=== PATIENT | female | born 1965 | race Caucasian/White ===

== ENCOUNTER 2017-07-25 14:04 | Observation (INO) | payer OTHER ==
[~2017-07-25] VITALS: Ht 157.5 cm; Wt 72.1 kg
[~2017-07-25 14:04] MED LIST: ALPRAZOLAM0.25 M2 PO; AMBIEN CR12.5 MG; AMBIEN CR12.5 MG PO; AMBIEN5 MG PO; AUGMENTIN875 MG PO; Ascorbic Acid,Ester- PO; CLARINEX-D 241 EACH PO; CLARINEX5 MG PO; CRESTOR20 MG PO; CRESTOR40 MG PO; Coumadin,Jantoven PO; DEXILANT60 MG PO; DOXYCYCLINE HYC50 MG; DOXYCYCLINE HYC50 MG PO; MARTEN-TAB 3251 EACH PO; NEXIUM40 MG PO; PRAVASTATIN SOD40 MG PO; PROTONIX40 MG; PROTONIX40 MG PO; SERTRALINE HCL100 MG; TIZANIDINE HCL4 MG PO; TRAMADOL HCL50 MG PO; Vibramycin PO; ZOLOFT100 MG PO; Zoloft PO
[2017-07-25 16:24] LABS: ALBUMIN 4.5 g/dL (3.2-4.8); CHLORIDE 101 mEq/L (99-109); POTASSIUM 5.2 mEq/L (3.7-5.4); SODIUM 138 mEq/L (136-147)
[2017-07-25 16:25] LABS: MAGNESIUM 2.8 mg/dL (1.3-2.7)
[2017-07-25 16:26] LABS: GLUCOSE 84 mg/dL (70-99)
[2017-07-25 16:27] LABS: TOTAL PROTEIN 9.2 g/dL (6.4-8.3)
[2017-07-25 16:28] LABS: TOTAL BILIRUBIN 0.3 mg/dL (0.0-1.0)
[2017-07-25 16:29] LABS: SERUM ETHYL ALCOHOL < 10 mg/dL
[2017-07-25 16:30] LABS: ALKALINE PHOSPHATASE 120 IU/L (3-129); CREATININE 0.9 mg/dL (0.6-1.3); GFR ESTIMATE (CALCULATED) > 59 mL/min/
[2017-07-25 16:31] LABS: UREA NITROGEN (BUN) 16 mg/dL (9-23)
[2017-07-25 16:32] LABS: AST (GOT) 70 IU/L (2-34)
[2017-07-25 16:33] LABS: ALT (GPT) 38 IU/L (3-49)
[2017-07-25 16:34] LABS: HEMATOCRIT 39.5 % (36.0-46.0); HEMOGLOBIN 13.2 G/DL (11.9-15.5); MCHC 33.4 G/DL (30.0-36.0); MCV 92.7 FL (83-99); PLATELET COUNT 331 K/uL (156-360); RBC DIS.WIDTH-CV 14.4 % (11.8-14.6); RED BLOOD COUNT 4.26 M/uL (3.80-5.20); WHITE BLOOD COUNT 13.3 K/uL (4.1-10.2)
[2017-07-25] MEDS ORDERED: FIORICET 50-301 EAC1 PO (20:23)
[2017-07-25] MEDS ORDERED: NEURONTIN100 MG PO (20:23)
[2017-07-25] MEDS ORDERED: ELAVIL25 MG PO (20:24)
[2017-07-25] MEDS ORDERED: MAGNESIUM400 M1 PO (20:25)
[2017-07-25] MEDS ORDERED: CYMBALTA30 MG PO (20:25)
[2017-07-25] MEDS ORDERED: BACLOFEN10 MG PO (20:26)
[2017-07-25] MEDS ORDERED: PRILOSEC20 MG PO (20:26)
[2017-07-25] MEDS ORDERED: KLONOPIN1 MG PO (20:26)
[2017-07-25] MEDS ORDERED: TECFIDERA120 MG PO (20:27)
[2017-07-25 21:27] LABS: TROP-I INTERPRETATION NEGATIVE; TROPONIN-I 0.03 ng/mL (0.0-0.30)
[2017-07-25 22:12] LABS: FOLIC ACID (FOLATE) > 22.0 NG/ML (5.0-22.0)
[2017-07-25 22:20] VITALS: BP 133/81
[2017-07-26 01:05] LABS: APPEARANCE SL.HAZY ((CLEAR)); BILIRUBIN NEGATIVE; BLOOD NEGATIVE; COLOR YELLOW ((YELLOW)); GLUCOSE (STRIP) NEGATIVE; KETONES 80; LEUKOCYTES NEGATIVE; NITRITE NEGATIVE; PROTEIN (STRIP) 100; SPECIFIC GRAVITY 1.026 (1.000-1.030); UROBILINOGEN 0.2 MG/DL (0.2-1.0)
[2017-07-26 01:18] LABS: BACTERIA NONE SEEN /HPF; EPITHELIAL CELLS NONE SEEN /HPF; MUCUS TRACE /LPF; RED BLOOD CELLS 0-5 /HPF (0-5); WHITE BLOOD CELLS 0-5 /HPF (0-5)
[2017-07-26 01:36] LABS: AMPHETAMINE NEGATIVE (500 ng/mL); BARBITURATES PRESUMPTIVE POSITIVE (200 ng/mL); BENZODIAZEPINES PRESUMPTIVE POSITIVE (150 ng/mL); BUPRENORPHINE NEGATIVE (10 ng/mL); COCAINE NEGATIVE (150 ng/mL); METHADONE NEGATIVE (200 ng/mL); METHAMPHETAMINE NEGATIVE (500 ng/mL); OPIATES (MORPHINE) NEGATIVE (100 ng/mL); OXYCODONE NEGATIVE (100 ng/mL); PHENCYCLIDINE NEGATIVE (25 ng/mL); PROPOXYPHENE NEGATIVE (300 ng/mL); THC CANNABINOIDS NEGATIVE (50 ng/mL); TRICYCLIC ANTIDEPRESSANTS PRESUMPTIVE POSITIVE (300 ng/mL)
[2017-07-26 02:34] LABS: BENZODIAZEPINES, URINE SCREEN Negative (200 ng/mL)
[2017-07-26 04:28] VITALS: BP 137/75
[2017-07-26 06:52] LABS: HEMATOCRIT 34.3 % (36.0-46.0); MCH 30.7 PG (29.0-34.0); MCHC 31.8 G/DL (30.0-36.0); MCV 96.6 FL (83-99); PLATELET COUNT 251 K/uL (156-360); RBC DIS.WIDTH-CV 14.7 % (11.8-14.6); RBC DIS.WIDTH-SD 52.4 % (39-53); RED BLOOD COUNT 3.55 M/uL (3.80-5.20); WHITE BLOOD COUNT 7.4 K/uL (4.1-10.2)
[2017-07-26 06:56] LABS: HEMOGLOBIN 10.9 G/DL (11.9-15.5)
[2017-07-26 07:13] LABS: CHLORIDE 106 MEQ/L (99-109); CREATININE 0.5 MG/DL (0.6-1.3); GFR ESTIMATE (CALCULATED) > 59 mL/min/; GLUCOSE 91 mg/dL (70-99); POTASSIUM 3.7 MEQ/L (3.7-5.4); SODIUM 142 MEQ/L (136-147); UREA NITROGEN (BUN) 10 mg/dL (9-23)
[2017-07-26 07:37] VITALS: BP 139/87
[2017-07-26 15:29] VITALS: BP 140/84
[2017-07-26 18:51] VITALS: BP 133/79
[2017-07-26 22:59] VITALS: BP 131/77
[2017-07-27 04:15] VITALS: BP 112/62
[2017-07-27 07:01] VITALS: BP 116/71
[2017-07-27 12:08] VITALS: BP 108/61
[2017-07-27 15:20] VITALS: BP 119/77
[2017-07-27] MEDS ORDERED: RISPERIDONE1 MG PO (15:58)
[2017-07-27] MEDS ORDERED: DULOXETINE HCL60 MG PO (15:58)
[2017-07-27] MEDS ORDERED: SERTRALINE HCL50 MG PO (15:58)
== END 2017-07-27 17:32 | disposition home or self-care (01) ==
LOC: EME 14:04 → 5EAST 19:45 → EDOF 19:45 → 5EAST 19:45 → EDOF 19:45 → ENRESERV 19:52 → 5EAST 22:10 → ENPENDDIS 07-27 → 5EAST 07-27 17:32
PROVIDERS: Emergency Medicine; Hospitalist
DX: F22 Delusional disorders (principal); G35 Multiple sclerosis; E78.5 Hyperlipidemia, unspecified; I69.351 Hemiplegia and hemiparesis following cerebral infarction affecting right dominant side; E86.0 Dehydration; R00.0 Tachycardia, unspecified; R29.6 Repeated falls; F17.290 Nicotine dependence, other tobacco product, uncomplicated; Z81.8 Family history of other mental and behavioral disorders; Z66 Do not resuscitate; Z88.5 Allergy status to narcotic agent; Z88.6 Allergy status to analgesic agent; Z79.899 Other long term (current) drug therapy
CPT/HCPCS: 70450; 71045; 80048; 80053; 81003; 82140; 82306; 82607; 82746; 83735; 84443; 84484; 84999; 85027; 87040; 87086; 93005; 93306; 99281; 99284; G0378; G0480; G8978 GP CH; G8979 GP CH; G8980 GP CH; G8987 GO CH; G8988 GO CH; G8989 GO CH; J1644; J2060; J7030

== ENCOUNTER 2017-08-01 10:59 | Inpatient (IN) | payer OTHER ==
[~2017-08-01] VITALS: Ht 157.5 cm; Wt 74.8 kg
[~2017-08-01 10:59] MED LIST changes: +BACLOFEN10 MG PO; +CYMBALTA30 MG PO; +DULOXETINE HCL60 MG PO; +ELAVIL25 MG PO; +FIORICET 50-301 EAC1 PO; +KLONOPIN1 MG PO; +MAGNESIUM400 M1 PO; +NEURONTIN100 MG PO; +PRILOSEC20 MG PO; +RISPERIDONE1 MG PO; +SERTRALINE HCL50 MG PO; +TECFIDERA240 MG PO
[2017-08-01 11:41] LABS: HEMATOCRIT 34.9 % (36.0-46.0); HEMOGLOBIN 11.3 G/DL (11.9-15.5); MCH 30.7 PG (29.0-34.0); MCHC 32.4 G/DL (30.0-36.0); MCV 94.8 FL (83-99); RBC DIS.WIDTH-CV 13.8 % (11.8-14.6); RBC DIS.WIDTH-SD 48.6 % (39-53); RED BLOOD COUNT 3.68 M/uL (3.80-5.20); WHITE BLOOD COUNT 10.7 K/uL (4.1-10.2)
[2017-08-01 11:49] LABS: CHLORIDE 104 mEq/L (99-109); POTASSIUM 3.5 mEq/L (3.7-5.4); SODIUM 143 mEq/L (136-147)
[2017-08-01 11:51] LABS: GLUCOSE 118 mg/dL (70-99); PLATELET COUNT 374 K/uL (156-360)
[2017-08-01 11:54] LABS: CREATININE 0.8 mg/dL (0.6-1.3); GFR ESTIMATE (CALCULATED) > 59 mL/min/
[2017-08-01 11:55] LABS: UREA NITROGEN (BUN) 9 mg/dL (9-23)
[2017-08-01 12:02] LABS: TROP-I INTERPRETATION NEGATIVE; TROPONIN-I < 0.01 ng/mL (0.0-0.30)
[2017-08-01 13:23] LABS: ALBUMIN 4.1 g/dL (3.2-4.8)
[2017-08-01 13:29] LABS: ALKALINE PHOSPHATASE 103 IU/L (3-129); TOTAL BILIRUBIN 0.2 mg/dL (0.0-1.0); TOTAL PROTEIN 7.8 g/dL (6.4-8.3)
[2017-08-01 13:31] LABS: DIRECT BILIRUBIN 0.1 mg/dL (0.0-0.3)
[2017-08-01 13:32] LABS: ALT (GPT) 15 IU/L (3-49); AST (GOT) 13 IU/L (2-34); LIPASE 37 U/L (1.0-51.0)
[2017-08-01] MEDS ORDERED: CYANOCOBAL1000 MCG/2 IM (18:43)
[2017-08-01 21:32] VITALS: BP 130/88
[2017-08-02 04:48] VITALS: BP 111/67
[2017-08-02 06:50] LABS: CHLORIDE 103 MEQ/L (99-109); CREATININE 0.6 MG/DL (0.6-1.3); GFR ESTIMATE (CALCULATED) > 59 mL/min/; GLUCOSE 103 mg/dL (70-99); POTASSIUM 4.1 MEQ/L (3.7-5.4); SODIUM 140 MEQ/L (136-147); UREA NITROGEN (BUN) 8 mg/dL (9-23)
[2017-08-02 06:56] LABS: BASOPHIL (%) 0.4 % (0-1); EOSINOPHIL (%) 1.2 % (0-5); EOSINOPHIL COUNT 0.1 K/uL (0-0.3); HEMATOCRIT 29.3 % (36.0-46.0); IMMATURE GRANULOCYTE (%) 0.3 % (0.0-0.7); LYMPHOCYTE (%) 24.4 % (15-42); LYMPHOCYTE COUNT 1.9 K/uL (1.0-2.8); MCH 30.1 PG (29.0-34.0); MCHC 31.1 G/DL (30.0-36.0); MONOCYTE (%) 8.1 % (3-12); MONOCYTE COUNT 0.6 K/uL (0-0.8); NEUTROPHIL (%) 65.6 % (45-76); PLATELET COUNT 294 K/uL (156-360); RBC DIS.WIDTH-CV 14.1 % (11.8-14.6); RED BLOOD COUNT 3.02 M/uL (3.80-5.20); WHITE BLOOD COUNT 7.7 K/uL (4.1-10.2)
[2017-08-02 06:57] LABS: HEMOGLOBIN 9.1 G/DL (11.9-15.5)
[2017-08-02 08:00] VITALS: BP 112/64
[2017-08-02 15:54] VITALS: BP 122/74
[2017-08-02 19:52] VITALS: BP 100/67
[2017-08-03] VITALS (7 sets, daily range): BP systolic 96–121; BP diastolic 52–83
[2017-08-03 06:36] LABS: BASOPHIL (%) 0.3 % (0-1); EOSINOPHIL (%) 1.2 % (0-5); EOSINOPHIL COUNT 0.1 K/uL (0-0.3); HEMATOCRIT 29.6 % (36.0-46.0); HEMOGLOBIN 9.2 G/DL (11.9-15.5); IMMATURE GRANULOCYTE (%) 0.5 % (0.0-0.7); LYMPHOCYTE (%) 32.1 % (15-42); LYMPHOCYTE COUNT 1.9 K/uL (1.0-2.8); MCHC 31.1 G/DL (30.0-36.0); MCV 96.4 FL (83-99); MONOCYTE COUNT 0.4 K/uL (0-0.8); NEUTROPHIL (%) 59.9 % (45-76); NEUTROPHIL COUNT 3.5 K/uL (1.8-6.4); PLATELET COUNT 350 K/uL (156-360); RBC DIS.WIDTH-CV 13.8 % (11.8-14.6); RBC DIS.WIDTH-SD 49.2 % (39-53); RED BLOOD COUNT 3.07 M/uL (3.80-5.20); WHITE BLOOD COUNT 5.9 K/uL (4.1-10.2)
[2017-08-03 07:00] LABS: CHLORIDE 105 MEQ/L (99-109); CREATININE 0.6 MG/DL (0.6-1.3); GFR ESTIMATE (CALCULATED) > 59 mL/min/; GLUCOSE 94 mg/dL (70-99); POTASSIUM 4.1 MEQ/L (3.7-5.4); SODIUM 142 MEQ/L (136-147); UREA NITROGEN (BUN) 6 mg/dL (9-23)
[2017-08-04 04:54] VITALS: BP 101/62
[2017-08-04 07:44] VITALS: BP 125/80
[2017-08-04 11:43] VITALS: BP 95/51
[2017-08-04 16:30] VITALS: BP 120/75
[2017-08-04 19:41] VITALS: BP 107/67
[2017-08-04 23:30] VITALS: BP 136/87
[2017-08-05 03:47] VITALS: BP 132/77
[2017-08-05 07:51] VITALS: BP 115/78
[2017-08-05 11:15] VITALS: BP 131/79
[2017-08-05] MEDS ORDERED: AUGMENTIN875 MG PO ×2 (11:23→11:44)
== END 2017-08-05 12:50 | disposition home or self-care (01) | DRG 194 ==
LOC: EME 10:59 → 5SOUTH 19:10 → EDOF 19:10 → ENRESERV 19:27 → 5SOUTH 21:24
PROVIDERS: Hospitalist; Student in an Organized Health Care Education/Training Program
DX: J18.9 Pneumonia, unspecified organism (principal); I69.351 Hemiplegia and hemiparesis following cerebral infarction affecting right dominant side; G35 Multiple sclerosis; J90 Pleural effusion, not elsewhere classified; E78.5 Hyperlipidemia, unspecified; E87.6 Hypokalemia; E83.52 Hypercalcemia; D64.9 Anemia, unspecified; Z90.710 Acquired absence of both cervix and uterus; Z96.651 Presence of right artificial knee joint; Z87.891 Personal history of nicotine dependence; I25.10 Atherosclerotic heart disease of native coronary artery without angina pectoris; F22 Delusional disorders; K21.9 Gastro-esophageal reflux disease without esophagitis; F32.9 Major depressive disorder, single episode, unspecified
CPT/HCPCS: 71045; 71046; 71275; 76705; 80048; 80076; 83605; 83690; 84484; 85025; 85027; 85379; 87040; 87070; 87205; 87449; 87502; 93005; 94640; 94640 76; 94760; 94799; 97530 GO; 99202; 99281; 99285; J0295; J0456; J0696; J1650; J2405; J3010; J7030; J7050

== ENCOUNTER 2017-09-20 17:41 | Inpatient (IN) | payer OTHER ==
[~2017-09-20] VITALS: Ht 157.5 cm; Wt 75.4 kg
[~2017-09-20 17:41] MED LIST changes: +CYANOCOBAL1000 MCG/2 IM
[2017-09-20 18:38] LABS: BASOPHIL (%) 0.3 % (0-1); EOSINOPHIL (%) 0 % (0-5); HEMATOCRIT 37.6 % (36.0-46.0); HEMOGLOBIN 12.1 G/DL (11.9-15.5); IMMATURE GRANULOCYTE (%) 0.4 % (0.0-0.7); LYMPHOCYTE (%) 27.8 % (15-42); LYMPHOCYTE COUNT 1.9 K/uL (1.0-2.8); MCH 28.2 PG (29.0-34.0); MCHC 32.2 G/DL (30.0-36.0); MCV 87.6 FL (83-99); MONOCYTE (%) 4.4 % (3-12); MONOCYTE COUNT 0.3 K/uL (0-0.8); NEUTROPHIL (%) 67.1 % (45-76); NEUTROPHIL COUNT 4.5 K/uL (1.8-6.4); PLATELET COUNT 253 K/uL (156-360); RBC DIS.WIDTH-CV 14.8 % (11.8-14.6); RBC DIS.WIDTH-SD 47.8 % (39-53); RED BLOOD COUNT 4.29 M/uL (3.80-5.20); WHITE BLOOD COUNT 6.8 K/uL (4.1-10.2)
[2017-09-20 18:47] LABS: ALBUMIN 4.3 g/dL (3.2-4.8); CHLORIDE 108 mEq/L (99-109); POTASSIUM 3.7 mEq/L (3.7-5.4); SODIUM 145 mEq/L (136-147)
[2017-09-20 18:50] LABS: GLUCOSE 103 mg/dL (70-99); TOTAL PROTEIN 7.8 g/dL (6.4-8.3)
[2017-09-20 18:52] LABS: TOTAL BILIRUBIN 0.2 mg/dL (0.0-1.0)
[2017-09-20 18:53] LABS: ALKALINE PHOSPHATASE 97 IU/L (3-129); CREATININE 0.9 mg/dL (0.6-1.3); GFR ESTIMATE (CALCULATED) > 59 mL/min/
[2017-09-20 18:54] LABS: UREA NITROGEN (BUN) 15 mg/dL (9-23)
[2017-09-20 18:55] LABS: AST (GOT) 19 IU/L (2-34)
[2017-09-20 18:56] LABS: ALT (GPT) 24 IU/L (3-49)
[2017-09-20 19:00] LABS: TROP-I INTERPRETATION NEGATIVE; TROPONIN-I < 0.01 ng/mL (0.0-0.30)
[2017-09-20 19:25] LABS: SERUM ETHYL ALCOHOL < 10 mg/dL
[2017-09-20 20:15] LABS: ACETAMINOPHEN (TYLENOL) < 10 mcg/mL (10-30)
[2017-09-20] MEDS ORDERED: SONATA10 MG PO (20:32)
[2017-09-20] MEDS ORDERED: CYMBALTA60 MG PO (20:35)
[2017-09-20] MEDS ORDERED: RISPERDAL1 MG PO (20:36)
[2017-09-20] MEDS ORDERED: ZOLOFT50 MG PO (20:36)
[2017-09-20] MEDS ORDERED: MELATIN3 MG PO (20:37)
[2017-09-20] MEDS ORDERED: TYLENOL EXTRA500 MG PO (20:40)
[2017-09-20] MEDS ORDERED: ALLERGY RELIEF25 M1 PO (20:40)
[2017-09-20 20:45] LABS: APPEARANCE CLEAR ((CLEAR)); BILIRUBIN SMALL; BLOOD NEGATIVE; COLOR STRAW ((YELLOW)); GLUCOSE (STRIP) NEGATIVE; KETONES NEGATIVE; LEUKOCYTES NEGATIVE; NITRITE NEGATIVE; PROTEIN (STRIP) NEGATIVE; SPECIFIC GRAVITY 1.011 (1.000-1.030); UCUL ADDED? NO; UROBILINOGEN 0.2 MG/DL (0.2-1.0)
[2017-09-20 20:54] LABS: AMPHETAMINE NEGATIVE (500 ng/mL); BARBITURATES NEGATIVE (200 ng/mL); BENZODIAZEPINES NEGATIVE (150 ng/mL); BUPRENORPHINE NEGATIVE (10 ng/mL); COCAINE NEGATIVE (150 ng/mL); METHADONE NEGATIVE (200 ng/mL); METHAMPHETAMINE NEGATIVE (500 ng/mL); OPIATES (MORPHINE) NEGATIVE (100 ng/mL); OXYCODONE NEGATIVE (100 ng/mL); PHENCYCLIDINE NEGATIVE (25 ng/mL); PROPOXYPHENE NEGATIVE (300 ng/mL); THC CANNABINOIDS NEGATIVE (50 ng/mL); TRICYCLIC ANTIDEPRESSANTS PRESUMPTIVE POSITIVE (300 ng/mL)
[2017-09-20 21:55] LABS: BASE EXCESS -1.9 mEq/L (-3 to +3); BICARBONATE 25.4 mEq/L (22-26); CARBOXY HGB 0.8 % (0-5); METHEMOGLOBIN 1.1 % (0-1.5); PCO2 54 mm Hg (35-45); PO2 82 mm Hg (80-100)
[2017-09-20 21:56] LABS: COMMENTS - BLOOD GASES A+C+; DEVICE RA; SITE LR; pH 7.28 (7.35-7.45)
[2017-09-21] VITALS (26 sets, daily range): BP systolic 106–171; BP diastolic 72–114
[2017-09-21 00:39] LABS: APPEARANCE CLEAR ((CLEAR)); BILIRUBIN NEGATIVE; BLOOD NEGATIVE; COLOR YELLOW ((YELLOW)); GLUCOSE (STRIP) NEGATIVE; KETONES NEGATIVE; LEUKOCYTES NEGATIVE; NITRITE NEGATIVE; PROTEIN (STRIP) NEGATIVE; UROBILINOGEN 0.2 MG/DL (0.2-1.0)
[2017-09-21 02:49] LABS: BASE EXCESS 0.4 mEq/L (-3 to +3); BICARBONATE 26.9 mEq/L (22-26); CARBOXY HGB 1.2 % (0-5); METHEMOGLOBIN 1.4 % (0-1.5); PCO2 51 mm Hg (35-45); PO2 80 mm Hg (80-100); pH 7.33 (7.35-7.45)
[2017-09-21 02:50] LABS: COMMENTS - BLOOD GASES C+; FI02 21 %; SITE RR; TOTAL RESP RATE 12 resp/min
[2017-09-21 04:51] LABS: HEMATOCRIT 35.2 % (36.0-46.0); HEMOGLOBIN 11.3 G/DL (11.9-15.5); MCH 28.5 PG (29.0-34.0); MCHC 32.1 G/DL (30.0-36.0); MCV 88.7 FL (83-99); PLATELET COUNT 222 K/uL (156-360); RBC DIS.WIDTH-CV 14.8 % (11.8-14.6); RBC DIS.WIDTH-SD 47.5 % (39-53); RED BLOOD COUNT 3.97 M/uL (3.80-5.20); WHITE BLOOD COUNT 5.8 K/uL (4.1-10.2)
[2017-09-21 05:03] LABS: CHLORIDE 110 mEq/L (99-109); SODIUM 145 mEq/L (136-147)
[2017-09-21 05:05] LABS: GLUCOSE 94 mg/dL (70-99)
[2017-09-21 05:08] LABS: CREATININE 0.8 mg/dL (0.6-1.3); GFR ESTIMATE (CALCULATED) > 59 mL/min/
[2017-09-21 05:09] LABS: UREA NITROGEN (BUN) 14 mg/dL (9-23)
[2017-09-22] VITALS (13 sets, daily range): BP systolic 117–160; BP diastolic 80–103
[2017-09-22 18:02] LABS: BASOPHIL (%) 0.2 % (0-1); EOSINOPHIL (%) 0.2 % (0-5); HEMATOCRIT 36.1 % (36.0-46.0); HEMOGLOBIN 11.4 G/DL (11.9-15.5); IMMATURE GRANULOCYTE (%) 0.2 % (0.0-0.7); LYMPHOCYTE (%) 50.6 % (15-42); LYMPHOCYTE COUNT 2.5 K/uL (1.0-2.8); MCH 27.3 PG (29.0-34.0); MCHC 31.6 G/DL (30.0-36.0); MCV 86.6 FL (83-99); MONOCYTE COUNT 0.2 K/uL (0-0.8); NEUTROPHIL (%) 43.8 % (45-76); NEUTROPHIL COUNT 2.1 K/uL (1.8-6.4); PLATELET COUNT 246 K/uL (156-360); RBC DIS.WIDTH-CV 14.8 % (11.8-14.6); RBC DIS.WIDTH-SD 47.4 % (39-53); RED BLOOD COUNT 4.17 M/uL (3.80-5.20); WHITE BLOOD COUNT 4.8 K/uL (4.1-10.2)
[2017-09-22 18:34] LABS: CHLORIDE 106 MEQ/L (99-109); CREATININE 0.7 MG/DL (0.6-1.3); GFR ESTIMATE (CALCULATED) > 59 mL/min/; GLUCOSE 89 mg/dL (70-99); MAGNESIUM 2.1 mg/dl (1.3-2.7); PHOSPHORUS 3.2 mg/dL (2.5-4.9); POTASSIUM 4.3 MEQ/L (3.7-5.4); SODIUM 137 MEQ/L (136-147); UREA NITROGEN (BUN) 8 mg/dL (9-23)
[2017-09-23] VITALS (23 sets, daily range): BP systolic 112–151; BP diastolic 80–104
[2017-09-23 06:28] LABS: BASOPHIL (%) 0.3 % (0-1); EOSINOPHIL (%) 0 % (0-5); HEMATOCRIT 32.9 % (36.0-46.0); HEMOGLOBIN 10.4 G/DL (11.9-15.5); IMMATURE GRANULOCYTE (%) 0.3 % (0.0-0.7); LYMPHOCYTE (%) 37.4 % (15-42); LYMPHOCYTE COUNT 2.2 K/uL (1.0-2.8); MCH 27.6 PG (29.0-34.0); MCHC 31.6 G/DL (30.0-36.0); MCV 87.3 FL (83-99); MONOCYTE (%) 6.8 % (3-12); MONOCYTE COUNT 0.4 K/uL (0-0.8); NEUTROPHIL (%) 55.2 % (45-76); NEUTROPHIL COUNT 3.2 K/uL (1.8-6.4); PLATELET COUNT 207 K/uL (156-360); RBC DIS.WIDTH-SD 48.2 % (39-53); RED BLOOD COUNT 3.77 M/uL (3.80-5.20); WHITE BLOOD COUNT 5.9 K/uL (4.1-10.2)
[2017-09-23 06:47] LABS: CHLORIDE 110 MEQ/L (99-109); CREATININE 0.7 MG/DL (0.6-1.3); GFR ESTIMATE (CALCULATED) > 59 mL/min/; GLUCOSE 86 mg/dL (70-99); POTASSIUM 3.7 MEQ/L (3.7-5.4); SODIUM 143 MEQ/L (136-147); UREA NITROGEN (BUN) 10 mg/dL (9-23)
[2017-09-24] VITALS (13 sets, daily range): BP systolic 126–151; BP diastolic 73–105
[2017-09-24 06:20] LABS: BASOPHIL (%) 0.4 % (0-1); EOSINOPHIL (%) 0.2 % (0-5); HEMATOCRIT 34.9 % (36.0-46.0); HEMOGLOBIN 10.9 G/DL (11.9-15.5); IMMATURE GRANULOCYTE (%) 0.2 % (0.0-0.7); LYMPHOCYTE (%) 38.6 % (15-42); LYMPHOCYTE COUNT 1.9 K/uL (1.0-2.8); MCH 26.8 PG (29.0-34.0); MCHC 31.2 G/DL (30.0-36.0); MONOCYTE (%) 6.7 % (3-12); MONOCYTE COUNT 0.3 K/uL (0-0.8); NEUTROPHIL (%) 53.9 % (45-76); NEUTROPHIL COUNT 2.6 K/uL (1.8-6.4); PLATELET COUNT 234 K/uL (156-360); RBC DIS.WIDTH-CV 14.6 % (11.8-14.6); RBC DIS.WIDTH-SD 46.8 % (39-53); RED BLOOD COUNT 4.06 M/uL (3.80-5.20); WHITE BLOOD COUNT 4.9 K/uL (4.1-10.2)
[2017-09-24 07:25] LABS: CHLORIDE 106 MEQ/L (99-109); CREATININE 0.8 MG/DL (0.6-1.3); GFR ESTIMATE (CALCULATED) > 59 mL/min/; GLUCOSE 101 mg/dL (70-99); SODIUM 142 MEQ/L (136-147); UREA NITROGEN (BUN) 9 mg/dL (9-23)
[2017-09-25 05:13] VITALS: BP 133/99
[2017-09-25 05:45] LABS: CHLORIDE 107 MEQ/L (99-109); CREATININE 0.7 MG/DL (0.6-1.3); GFR ESTIMATE (CALCULATED) > 59 mL/min/; GLUCOSE 102 mg/dL (70-99); POTASSIUM 3.4 MEQ/L (3.7-5.4); SODIUM 141 MEQ/L (136-147); UREA NITROGEN (BUN) 8 mg/dL (9-23)
[2017-09-25 08:28] VITALS: BP 122/81
[2017-09-25] MEDS ORDERED: LEVETIRACETAM500 MG PO (09:53)
[2017-09-25 13:38] VITALS: BP 122/81
== END 2017-09-25 16:15 | disposition home or self-care (01) | DRG 917 ==
LOC: EME 17:41 → 4WEST 21:53 → EDOF 21:53 → CANRESERV 22:00 → ENRESERV 22:00 → EDOF 23:23 → 4WEST 23:56 → ENRESERV 09-24 09:24 → 3EAST 09-24 10:37
PROVIDERS: Emergency Medicine Emergency Medical Services; Hospitalist; Internal Medicine Critical Care Medicine; Specialist; Surgery
DX: T43.201A Poisoning by unspecified antidepressants, accidental (unintentional), initial encounter (principal); G92 Toxic encephalopathy; F05 Delirium due to known physiological condition; R40.20 Unspecified coma; J96.00 Acute respiratory failure, unspecified whether with hypoxia or hypercapnia; R56.9 Unspecified convulsions; E78.5 Hyperlipidemia, unspecified; E87.2 Acidosis; G35 Multiple sclerosis; G43.909 Migraine, unspecified, not intractable, without status migrainosus; G89.29 Other chronic pain; K21.9 Gastro-esophageal reflux disease without esophagitis; F32.9 Major depressive disorder, single episode, unspecified; F41.9 Anxiety disorder, unspecified; F29 Unspecified psychosis not due to a substance or known physiological condition; E66.9 Obesity, unspecified; Z96.651 Presence of right artificial knee joint; Z68.30 Body mass index [BMI] 30.0-30.9, adult; Z86.73 Personal history of transient ischemic attack (TIA), and cerebral infarction without residual deficits; Z87.891 Personal history of nicotine dependence; Z88.5 Allergy status to narcotic agent; Z88.6 Allergy status to analgesic agent
CPT/HCPCS: 36600; 70450; 70551; 71045; 80048; 80053; 81003; 82140; 82803; 83605; 83735; 84100; 84484; 85025; 85027; 87040; 87641; 93005; 95819; 99281; 99285; G0480; J0360; J1630; J1650; J1953; J2060; J3486; J7030; J7040; J7050

== ENCOUNTER 2017-12-24 16:22 | Inpatient (IN) | payer OTHER ==
[~2017-12-24] VITALS: Ht 157.5 cm; Wt 77.9 kg
[~2017-12-24 16:22] MED LIST changes: +ALLERGY RELIEF25 M1 PO; +CYMBALTA60 MG PO; +LEVETIRACETAM500 MG PO; +MELATIN3 MG PO; +RISPERDAL1 MG PO; +SONATA10 MG PO; +TYLENOL EXTRA500 MG PO; +ZOLOFT50 MG PO
[2017-12-24 16:44] LABS: HEMATOCRIT 40.5 % (36.0-46.0); HEMOGLOBIN 13.7 G/DL (11.9-15.5); MCH 28.8 PG (29.0-34.0); MCHC 33.8 G/DL (30.0-36.0); MCV 85.3 FL (83-99); PLATELET COUNT 364 K/uL (156-360); RBC DIS.WIDTH-CV 17.2 % (11.8-14.6); RED BLOOD COUNT 4.75 M/uL (3.80-5.20); WHITE BLOOD COUNT 9.2 K/uL (4.1-10.2)
[2017-12-24 16:55] LABS: CHLORIDE 111 mEq/L (99-109); SODIUM 142 mEq/L (136-147)
[2017-12-24 16:57] LABS: GLUCOSE 107 mg/dL (70-99)
[2017-12-24 17:02] LABS: UREA NITROGEN (BUN) 10 mg/dL (9-23)
[2017-12-24 17:07] LABS: TROP-I INTERPRETATION NEGATIVE; TROPONIN-I < 0.01 ng/mL (0.0-0.30)
[2017-12-24 17:22] LABS: CREATININE 1.1 mg/dL (0.6-1.3); GFR ESTIMATE (CALCULATED) 55 mL/min/
[2017-12-24 18:16] LABS: D-DIMER ELISA < 150.00 ng/mLDDU (<230)
[2017-12-24 21:54] LABS: INTER. NORMALIZED RATIO 1.1
[2017-12-24 21:57] LABS: PTT 30.6 SEC (25-37)
[2017-12-24 22:28] LABS: THYROTROPIN (TSH) 0.42 MIU/L (0.4-5.5)
[2017-12-24 22:45] LABS: MAGNESIUM 1.9 mg/dl (1.3-2.7)
[2017-12-24 22:51] LABS: HDL CHOLESTEROL 54 MG/DL (Desirable>=50); LDL CHOLESTEROL 212 mg/dL (Desirable<100); NON-HDL CHOLESTEROL 260 mg/dL (Desirable<160); TOTAL CHOLESTEROL 314 mg/dL (Desirable<200); TRIGLYCERIDES 240 MG/DL (Normal: <150)
[2017-12-24 22:56] LABS: APPEARANCE CLEAR ((CLEAR)); BILIRUBIN NEGATIVE; BLOOD NEGATIVE; COLOR STRAW ((YELLOW)); GLUCOSE (STRIP) NEGATIVE; KETONES 5; LEUKOCYTES NEGATIVE; NITRITE NEGATIVE; PROTEIN (STRIP) NEGATIVE; UCUL ADDED? NO; UROBILINOGEN 0.2 MG/DL (0.2-1.0)
[2017-12-24 23:38] VITALS: BP 116/86
[2017-12-25 01:19] LABS: TROP-I INTERPRETATION NEGATIVE; TROPONIN-I < 0.01 ng/mL (0.0-0.30)
[2017-12-25 03:52] VITALS: BP 103/57
[2017-12-25 05:38] LABS: TROP-I INTERPRETATION NEGATIVE; TROPONIN-I 0.01 ng/mL (0.0-0.30)
[2017-12-25 05:40] LABS: HEMATOCRIT 34.8 % (36.0-46.0); MCH 28.1 PG (29.0-34.0); MCHC 32.2 G/DL (30.0-36.0); MCV 87.2 FL (83-99); RBC DIS.WIDTH-CV 17.9 % (11.8-14.6); RED BLOOD COUNT 3.99 M/uL (3.80-5.20); WHITE BLOOD COUNT 7.2 K/uL (4.1-10.2)
[2017-12-25 05:42] LABS: HEMOGLOBIN 11.2 G/DL (11.9-15.5); PLATELET COUNT 241 K/uL (156-360)
[2017-12-25 05:50] LABS: ALBUMIN 4.1 G/DL (3.2-4.8); ALKALINE PHOSPHATASE 52 IU/L (3-129); ALT (GPT) 13 IU/L (3-49); AST (GOT) 19 IU/L (2-34); CHLORIDE 110 MEQ/L (99-109); CREATININE 0.9 MG/DL (0.6-1.3); GFR ESTIMATE (CALCULATED) > 59 mL/min/; GLUCOSE 94 mg/dL (70-99); POTASSIUM 3.9 MEQ/L (3.7-5.4); SODIUM 141 MEQ/L (136-147); TOTAL BILIRUBIN 0.3 MG/DL (0.0-1.0); TOTAL PROTEIN 6.3 G/DL (6.4-8.3); UREA NITROGEN (BUN) 12 mg/dL (9-23)
[2017-12-25 08:11] VITALS: BP 138/93
[2017-12-25 12:19] VITALS: BP 96/60
[2017-12-25 16:32] VITALS: BP 138/76
[2017-12-25 20:51] VITALS: BP 114/69
[2017-12-25 22:58] VITALS: BP 84/52
[2017-12-26] VITALS (7 sets, daily range): BP systolic 87–128; BP diastolic 52–84
[2017-12-26 13:00] LABS: HEMATOCRIT 32.3 % (36.0-46.0); HEMOGLOBIN 10.7 G/DL (11.9-15.5); MCH 29.2 PG (29.0-34.0); MCHC 33.1 G/DL (30.0-36.0); PLATELET COUNT 194 K/uL (156-360); RBC DIS.WIDTH-CV 18.5 % (11.8-14.6); RBC DIS.WIDTH-SD 59.9 % (39-53); RED BLOOD COUNT 3.67 M/uL (3.80-5.20); WHITE BLOOD COUNT 6.3 K/uL (4.1-10.2)
[2017-12-26 13:29] LABS: CHLORIDE 108 MEQ/L (99-109); CREATININE 0.6 MG/DL (0.6-1.3); GFR ESTIMATE (CALCULATED) > 59 mL/min/; GLUCOSE 87 mg/dL (70-99); POTASSIUM 4.1 MEQ/L (3.7-5.4); SODIUM 141 MEQ/L (136-147); UREA NITROGEN (BUN) 7 mg/dL (9-23)
[2017-12-27 03:50] VITALS: BP 105/70
[2017-12-27 05:21] LABS: HEMATOCRIT 32.4 % (36.0-46.0); HEMOGLOBIN 10.5 G/DL (11.9-15.5); MCH 28.8 PG (29.0-34.0); MCHC 32.4 G/DL (30.0-36.0); MCV 88.8 FL (83-99); PLATELET COUNT 202 K/uL (156-360); RBC DIS.WIDTH-CV 18.5 % (11.8-14.6); RED BLOOD COUNT 3.65 M/uL (3.80-5.20); WHITE BLOOD COUNT 5.8 K/uL (4.1-10.2)
[2017-12-27 07:58] VITALS: BP 123/83
[2017-12-27] MEDS ORDERED: ALLERGY RELIEF25 M1 PO (10:41)
[2017-12-27] MEDS ORDERED: LOPRESSOR25 MG PO (10:42)
[2017-12-27] MEDS ORDERED: ATORVASTATIN CA40 MG PO (10:47)
== END 2017-12-27 11:20 | disposition home or self-care (01) | DRG 310 ==
LOC: EME 16:22 → EDOF 20:53 → 4EAST 20:53 → ENRESERV 21:05 → 4EAST 22:55
PROVIDERS: Emergency Medicine; Hospitalist; Internal Medicine
DX: I47.1 Supraventricular tachycardia (principal); I48.92 Unspecified atrial flutter; R07.9 Chest pain, unspecified; G35 Multiple sclerosis; I07.1 Rheumatic tricuspid insufficiency; D64.9 Anemia, unspecified; E78.5 Hyperlipidemia, unspecified; K21.9 Gastro-esophageal reflux disease without esophagitis; G43.909 Migraine, unspecified, not intractable, without status migrainosus; F32.9 Major depressive disorder, single episode, unspecified; F41.9 Anxiety disorder, unspecified; Z86.73 Personal history of transient ischemic attack (TIA), and cerebral infarction without residual deficits; Z87.891 Personal history of nicotine dependence
CPT/HCPCS: 71045; 80048; 80053; 80061; 81003; 82272; 83735; 83880; 84439; 84443; 84484; 85027; 85379; 85610; 85730; 93005; 93306; J1650; J2060; J7030; J7050